=== PATIENT | female | born 1945 | race Caucasian/White ===

== ENCOUNTER 2017-06-06 13:48 | Emergency (ER) | payer MEDICARE, OTHER ==
[2017-06-06] MEDS ORDERED: Sodium Chloride 0.9% 1000 ML 1,000 ML IV SCH (14:15)
[2017-06-06 14:19] LABS: Lactic Acid 2.5 (0.4-2.0)
--- NOTE | 2017-06-06 14:22 | ERPHSYRPT ---
- History of Present Illness Time Seen by Provider: 06/06/17 14:21 Source: patient, family Exam Limitations: no limitations Patient Subjective Stated Complaint: pt states started feeling bad yesterdasy and running a fever today . has taken tylenol today, Triage Nursing Assessment: pt alert, resp easy, skin w/d pink. abd soft, mucus membranes moist Physician History: pt states started feeling bad yesterday and running a fever today . has taken tylenol today, Timing/Duration: yesterday Fever Severity: moderate Fever Therapy BARK SPUDDER: Acetaminophen Associated Symptoms: denies symptoms International travel in last 2 weeks: No Allergies/Adverse Reactions: codeine Allergy (Verified 06/06/17 14:10) Home Medications: Cinnamon Bark [Cinnamon] 500 mg DAILY 06/06/17 [History] Diltiazem HCl [Diltiazem ER] 180 mg DAILY 06/06/17 [History] Insulin Detemir [Levemir Flextouch] 1 unit TID 06/06/17 [History] Insulin Glargine [Lantus Insulin] 20 units HS 06/06/17 [History] Metformin HCl 500 mg [Glucophage 500 MG] 500 mg BID 06/06/17 [History] Multivit,Calc,Mins/Iron/Folic [Women's Daily Formula Caplet] 1 ea DAILY [History] Hx Influenza Vaccination/Date Given: No Hx Pneumococcal Vaccination/Date Given: Yes Immunizations Up to Date: Yes - Review of Systems Constitutional: Fever, Lethargy, Weakness, No Chills Eyes: No Symptoms Ears, Nose, & Throat: No Symptoms Respiratory: No Cough, No Dyspnea Cardiac: No Chest Pain, No Edema, No Syncope Abdominal/Gastrointestinal: No Abdominal Pain, No Nausea, No Vomiting, No Diarrhea Genitourinary Symptoms: No Dysuria Musculoskeletal: No Back Pain, No Neck Pain Skin: No Rash Neurological: No Dizziness, No Focal Weakness, No Sensory Changes Psychological: No Symptoms Endocrine: No Symptoms All Other Systems: Reviewed and Negative - Past Medical History Cardiac History: Arrhythmia, Congenital Heart Disease Endocrine Medical History: Diabetes Type II - Past Surgical History Past Surgical History: Yes Gastrointestinal: Cholecystectomy Musculoskeletal: Orthopedic Surgery Female Surgical History: Hysterectomy - Social History Smoking Status: Current some day smoker Exposure to second hand smoke: Yes Drug Use: none Patient Lives Alone: No - Female History Hx Last Menstrual Period: post - Nursing Vital Signs Nursing Vital Signs: Initial Vital Signs Temperature 100.2 F 06/06/17 13:55 Pulse Rate 100 H 06/06/17 13:55 Respiratory Rate 22 06/06/17 13:55 Blood Pressure 140/75 06/06/17 13:55 O2 Sat by Pulse Oximetry 95 06/06/17 13:55 Pain Scale Pain Intensity 0 - Physical Exam General Appearance: no apparent distress, alert Eye Exam: PERRL/EOMI ENT Exam: normal ENT inspection, No pharyngeal erythema, No tonsillar exudate Neck Exam: supple, full range of motion, No meningismus Respiratory Exam: normal breath sounds, lungs clear, no respiratory distress Cardiovascular/Chest Exam: normal heart sounds, regular rate/rhythm, No murmur, No edema Gastrointestinal/Abdominal Exam: soft, non tender, no distention Extremity Exam: non-tender, normal range of motion, normal inspection, normal capillary refill Neurologic Exam: alert, oriented x 3, cooperative, 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, normal mood/affect, sensation nml, No motor deficits Skin Exam: normal color, warm, dry, No rash SpO2: 95 Oxygen Delivery: Room Air Ordered Tests: Active Orders 24 hr Category Date Time Status CO2 Monitoring STAT Care 06/06/17 14:02 Active Oxygen-ED Only NASAL CANNULA 2 lpm Care 06/06/17 14:02 Active Rectal Temperature STAT Care 06/06/17 14:02 Active BLOOD CULTURE Stat Lab 06/06/17 14:20 Received CBC W DIFF Stat Lab 06/06/17 14:15 Completed CMP Stat Lab 06/06/17 14:15 Completed CULTURE,URINE Stat Lab 06/06/17 14:15 Received Lactic Acid Stat Lab 06/06/17 Ordered Lactic Acid Stat Lab 06/06/17 14:03 Completed Lactic Acid Stat Lab 06/06/17 16:19 Results Manual Differential NC Stat Lab 06/06/17 14:15 Completed UA W/ MICROSCOPIC Stat Lab 06/06/17 14:15 Completed Medication Summary Generic Name Dose Route Start Last Admin Trade Name Freq PRN Reason Stop Dose Admin Acetaminophen 1,000 mg 06/06/17 15:28 06/06/17 15:30 Tylenol Extra Strength 500 Mg PO 07/06/17 15:27 1,000 mg Q4H PRN PRN Administration HEADACHE Sodium Chloride 1,000 mls @ 999 mls/hr 06/06/17 14:15 06/06/17 14:49 Sodium Chloride 0.9% 1000 Ml IV 06/06/17 16:15 999 mls/hr .Q1H1M NELL Administration Discontinued Medications Generic Name Dose Route Start Last Admin Trade Name Freq PRN Reason Stop Dose Admin Piperacillin Sod/Tazobactam Sod 3.375 gm in 100 mls @ 200 mls/hr 06/06/17 14: 36 06/06/17 14:48 Zosyn 3.375gm/100 Ml D5w IV 06/06/17 15:05 200 mls/hr STAT STA Administration Piperacillin Sod/Tazobactam Sod Confirm 06/06/17 14:43 Zosyn 3.375gm/100 Ml D5w Administered 06/06/17 14:44 Dose 3.375 gm in 100 mls @ ud IV .[facility] Lab/Rad Data: Laboratory Result Diagrams 06/06/17 14:15 06/06/17 14:15 Laboratory Results 06/06/17 06/06/17 06/06/17 Range/Units 16:19 14:15 14:15 WBC (4.0-10.5) K/mm3 RBC (4.1-5.4) M/mm3 Hgb (12.0-16.0) gm/dl Hct (35-47) % MCV (78-100) fl MCH (26-32) pg MCHC (32-36) g/dl RDW (11.5-14.0) % Plt Count (150-450) K/mm3 MPV (6-9.5) fl Segmented Neutrophils (36.0-66.0) % Band Neutrophils (0.0-2.0) % Lymphocytes (Manual) (24-44) % Monocytes (Manual) (0.0-12.0) % Differential Comment Platelet Estimate (NORMAL) Sodium 136 (136-145) mEq/L Potassium 4.1 (3.5-5.1) mEq/L Chloride 102 (98-107) mEq/L Carbon Dioxide 21.8 (21-32) mEq/L Anion Gap 16.7 H (5-15) MEQ/L BUN 14 (9-20) mg/dL Creatinine 0.92 (0.55-1.30) mg/dl Estimated GFR > 60 ML/MIN Glucose 292 H (70-110) MG/DL Lactic Acid 2.2 H (0.4-2.0) Calcium 9.2 (8.5-10.1) mg/dL Total Bilirubin 1.50 H (0.2-1.0) mg/dL AST 40 H (15-37) U/L ALT 33 (12-78) U/L Alkaline Phosphatase 117 H (46-116) U/L Serum Total Protein 7.4 (6.4-8.2) gm/dL Albumin 3.2 L (3.4-5.0) g/dL Ur Collection Type CCMS Urine Color YELLOW (YELLOW) Urine Appearance CLOUDY (CLEAR) Urine pH 5.0 (5-6) Ur Specific [place] 1.025 (1.005-1.025) Urine Protein 100 (Negative) Urine Ketones NEGATIVE (NEGATIVE) Urine Blood 50 (0-5) Peter/ul Urine Nitrite NEGATIVE (NEGATIVE) Urine Bilirubin NEGATIVE (NEGATIVE) Urine Urobilinogen NORMAL (0-1) mg/dL Ur Leukocyte Esterase TRACE (NEGATIVE) Urine Microscopic WBC 0-2 (0-5) /HPF Ur Epithelial Cells MANY (FEW) /HPF Amorphous Crystals FEW (NEGATIVE) /HPF Urine Bacteria FEW (NEGATIVE) /HPF Urine Glucose 500 (NEGATIVE) mg/dL Specimen Received 06/06/17 1415 06/06/17 06/06/17 Range/Units 14:15 14:03 WBC 9.4 (4.0-10.5) K/mm3 RBC 4.27 (4.1-5.4) M/mm3 Hgb 13.1 (12.0-16.0) gm/dl Hct 38.4 (35-47) % MCV 89.9 (78-100) fl MCH 30.7 (26-32) pg MCHC 34.1 (32-36) g/dl RDW 14.1 H (11.5-14.0) % Plt Count 68 L (150-450) K/mm3 MPV 10.5 H (6-9.5) fl Segmented Neutrophils 85 H (36.0-66.0) % Band Neutrophils 8 H (0.0-2.0) % Lymphocytes (Manual) 1 L (24-44) % Monocytes (Manual) 6 (0.0-12.0) % Differential Comment NORMAL Platelet Estimate DECREASED (NORMAL) Sodium (136-145) mEq/L Potassium (3.5-5.1) mEq/L Chloride (98-107) mEq/L Carbon Dioxide (21-32) mEq/L Anion Gap (5-15) MEQ/L BUN (9-20) mg/dL Creatinine (0.55-1.30) mg/dl Estimated GFR ML/MIN Glucose (70-110) MG/DL Lactic Acid 2.5 H (0.4-2.0) Calcium (8.5-10.1) mg/dL Total Bilirubin (0.2-1.0) mg/dL AST (15-37) U/L ALT (12-78) U/L Alkaline Phosphatase (46-116) U/L Serum Total Protein (6.4-8.2) gm/dL Albumin (3.4-5.0) g/dL Ur Collection Type Urine Color (YELLOW) Urine Appearance (CLEAR) Urine pH (5-6) Ur Specific [place] (1.005-1.025) Urine Protein (Negative) Urine Ketones (NEGATIVE) Urine Blood (0-5) Peter/ul Urine Nitrite (NEGATIVE) Urine Bilirubin (NEGATIVE) Urine Urobilinogen (0-1) mg/dL Ur Leukocyte Esterase (NEGATIVE) Urine Microscopic WBC (0-5) /HPF Ur Epithelial Cells (FEW) /HPF Amorphous Crystals (NEGATIVE) /HPF Urine Bacteria (NEGATIVE) /HPF Urine Glucose (NEGATIVE) mg/dL Specimen Received - Progress Progress: improved Counseled pt/family regarding: lab results, diagnosis, need for follow-up - Departure Time of Disposition: 16:33 Departure Disposition: Home Clinical Impression: Elevated lactic acid level Fever Qualifiers: Fever type: unspecified Qualified Code(s): R50.9 - Fever, unspecified UTI (urinary tract infection) Qualifiers: Urinary tract infection type: acute cystitis Hematuria presence: without hematuria Qualified Code(s): N30.00 - Acute cystitis without hematuria Type 2 diabetes mellitus Qualifiers: Diabetes mellitus complication status: with hyperglycemia Diabetes mellitus fpc insulin use: without fpc use Qualified Code(s): E11.65 - Type 2 diabetes mellitus with hyperglycemia Condition: Stable Critical Care Time: Yes Critical Care Time(excluding separately billable procedures): 30-74 minutes Instructions: Fever (Symptom) -- Adult, Diabetes Type 2, Take Care of Your Feet If You Have Diabetes Additional Instructions: Please follow the instructions given to you. Please take your medication as prescribed if given. If symptoms recur or get worse, come back to the emergency room if you cannot reach your primary care physician, or call your primary care physician for an appointment. Again if your symptoms get worse, come back to the emergency room. Thanks for visiting emergency room, and let us take care of you. Prescriptions: Ciprofloxacin [Cipro 500 MG] 500 mg PO BID #15 tablet
[2017-06-06 14:35] LABS: Collection Type CCMS; Glucose 500 mg/dL (NEGATIVE); Leukocyte Esterase TRACE (NEGATIVE)
[2017-06-06 14:36] LABS: Bilirubin NEGATIVE (NEGATIVE); Blood 50 Ery/ul (0-5); COMPLETE URINE MICROSCOPIC? YES
[2017-06-06] MEDS ORDERED: Zosyn 3.375GM/100 Ml D5W 3.375 GM/100 ML IVPB IV STA (14:36)
[2017-06-06] MEDS ORDERED: Sodium Chloride 0.9% 1000 ML 1,000 ML ONE ×2 (14:43→15:28)
[2017-06-06] MEDS ORDERED: Zosyn 3.375GM/100 Ml D5W 3.375 GM/100 ML IVPB IV ONE (14:43)
[2017-06-06 14:44] LABS: Mean Cell Volume 89.9 fl (78-100); Mean Corpuscular Hemoglobin 30.7 pg (26-32); Mean Platelet Volume 10.5 fl (6-9.5); Platelet Count 68 K/mm3 (150-450); Red Blood Count 4.27 M/mm3 (4.1-5.4); Red Cell Distribution Width 14.1 % (11.5-14.0); White Blood Count 9.4 K/mm3 (4.0-10.5)
[2017-06-06 14:48] LABS: ALBUMIN 3.2 g/dL (3.4-5.0); ALKALINE PHOSPHATASE 117 U/L (46-116); ANION GAP 16.7 MEQ/L (5-15); CHLORIDE 102 mEq/L (98-107); Carbon Dioxide 21.8 mEq/L (21-32); Glucose 292 MG/DL (70-110); Potassium 4.1 mEq/L (3.5-5.1); SGOT/AST 40 U/L (15-37); SGPT/ALT 33 U/L (12-78); SODIUM 136 mEq/L (136-145); Total Protein 7.4 gm/dL (6.4-8.2)
[2017-06-06 14:52] LABS: Bacteria FEW /HPF (NEGATIVE); Epithelial Cells MANY /HPF (FEW); WBC 0-2 /HPF (0-5)
[2017-06-06 15:04] LABS: BLOOD UREA NITROGEN 14 mg/dL (9-20)
[2017-06-06] MEDS ORDERED: TYLENOL EXTRA STRENGTH 500 MG PO PRN (15:28)
[2017-06-06] MEDS ORDERED: TYLENOL EXTRA STRENGTH 500 MG ONE (15:29)
[2017-06-06 15:30] LABS: BAND 8 % (0.0-2.0); Total Cells Counted 100
[2017-06-06 15:31] LABS: Platelet Estimate DECREASED (NORMAL)
[2017-06-06 16:25] LABS: Lactic Acid 2.2 (0.4-2.0)
[2017-06-06 16:59] VITALS: BP 132/86; PULSE 120; O2SAT 96
== END 2017-06-06 17:13 | disposition home or self-care (01) ==
LOC: ED 13:48
DX: N39.0 Urinary tract infection, site not specified (principal); R50.9 Fever, unspecified; E11.65 Type 2 diabetes mellitus with hyperglycemia; R74.0 Nonspecific elevation of levels of transaminase and lactic acid dehydrogenase [LDH]; Z79.899 Other long term (current) drug therapy
CPT/HCPCS: 36415; 80053; 81000; 83605; 85025; 87040; 87086; 94770; 96360; 96361; 96365; 99284; J2543; A9270-GY